=== PATIENT | male | born 1930 | race Caucasian/White ===

== ENCOUNTER 2016-08-04 21:22 | Inpatient (IN) | payer OTHER ==
[2016-08-04] MEDS ORDERED: ACETAMINOPHEN 325 MG PO ONE (21:31)
[2016-08-04] MEDS ORDERED: ACETAMINOPHEN 325 MG ONE (21:32)
[2016-08-04 21:37] LABS: BASOPHILS % (AUTO) 1 % (0-3); EOSINOPHILS % (AUTO) 0 % (0-9); HEMATOCRIT 43 % (39-53); MEAN CORPUSCULAR HGB CONC 34.4 gm/dl (32.0-36.0); MEAN CORPUSCULAR VOLUME 93 fL (80-100); MONOCYTES % (AUTO) 13.9 % (0-12); NEUTROPHILS % (AUTO) 70.7 % (37-80)
[2016-08-04 21:50] LABS: CALCIUM 8.9 mg/dl (8.5-10.1); POTASSIUM 4.3 mMol/L (3.5-5.1)
[2016-08-04] MEDS ORDERED: OSELTAMIVIR PHOSPHATE 75 MG CAP PO ONE ×2 (22:14→22:53)
[2016-08-04] MEDS ORDERED: SODIUM CHLORIDE 0.9% 1000ML 1,000 ML IV SCH (22:45)
[2016-08-04] MEDS ORDERED: ASPIRIN 325 MG TAB PO SCH (23:15)
[2016-08-04] MEDS: SODIUM CHLORIDE 0.9% FLUSH 10 ML SOL IV PRN (23:15)
[2016-08-04] MEDS ORDERED: ASPIRIN 325 MG TAB ONE (23:16)
[2016-08-04] MEDS ORDERED: BISACODYL 5 MG TAB ECT PO PRN (23:27)
[2016-08-04] MEDS: SODIUM CHLORIDE 0.9% 1000ML 1,000 ML IV SCH (23:27)
[2016-08-05 08:19] LABS: APPEARANCE,URINE Clear; BILIRUBIN,URINE NEGATIVE (NEGATIVE); COLOR,URINE Yellow; GLUCOSE, URINE (UA) NEGATIVE (NEGATIVE); KETONES,URINE TRACE (NEGATIVE); LEUKOCYTE ESTERASE ,URINE NEGATIVE (NEGATIVE); NITRATE,URINE NEGATIVE (NEGATIVE); OCCULT BLOOD,URINE 2+ (NEG-TRACE); PH,URINE 5.5; UROBILINOGEN,URINE 0.2 (0.2-1.0 EU)
[2016-08-05 08:20] LABS: WBC,URINE 0-2 (0-5AV/HPF)
[2016-08-05] MEDS ORDERED: ASPIRIN EC 81 MG PO SCH (09:00)
[2016-08-05] MEDS: OSELTAMIVIR PHOSPHATE 75 MG CAP PO SCH ×2 (10:00→20:31)
[2016-08-05] MEDS: ENOXAPARIN 40 MG SOL SC SCH (10:01)
[2016-08-05] MEDS: SODIUM CHLORIDE 0.9% 1000ML 1,000 ML IV SCH (13:21)
[2016-08-05] MEDS: SENNOSIDES A AND B 8.6 MG TAB PO SCH (20:30)
[2016-08-06] MEDS: SODIUM CHLORIDE 0.9% 1000ML 1,000 ML IV SCH ×2 (01:44→16:45)
[2016-08-06 07:05] LABS: CALCIUM 8.5 mg/dl (8.5-10.1); POTASSIUM 3.9 mMol/L (3.5-5.1)
[2016-08-06 07:27] LABS: BASOPHILS % (AUTO) 1 % (0-3); EOSINOPHILS % (AUTO) 1 % (0-9); HEMATOCRIT 40 % (39-53); MEAN CORPUSCULAR HGB CONC 35.6 gm/dl (32.0-36.0); MEAN CORPUSCULAR VOLUME 92 fL (80-100); MONOCYTES % (AUTO) 12.2 % (0-12)
[2016-08-06] MEDS ORDERED: MAGNESIUM HYDROXIDE 30 ML SUS PO PRN (08:04)
[2016-08-06] MEDS: ENOXAPARIN 40 MG SOL SC SCH (08:46)
[2016-08-06] MEDS: OSELTAMIVIR PHOSPHATE 75 MG CAP PO SCH ×2 (08:46→21:01)
[2016-08-06] MEDS: CLOPIDOGREL 75 MG TAB PO SCH (08:46)
[2016-08-06] MEDS ORDERED: LORAZEPAM 2 MG/ML SOL IV ONE ×2 (10:46→11:20)
[2016-08-06] MEDS: SODIUM CHLORIDE 0.9% FLUSH 10 ML SOL IV PRN (11:03)
[2016-08-06] MEDS: SENNOSIDES A AND B 8.6 MG TAB PO SCH (21:01)
[2016-08-07] MEDS: SODIUM CHLORIDE 0.9% 1000ML 1,000 ML IV SCH ×2 (06:19→19:42)
[2016-08-07 07:28] LABS: BASOPHILS % (AUTO) 1 % (0-3); EOSINOPHILS % (AUTO) 1 % (0-9); HEMATOCRIT 38 % (39-53); MEAN CORPUSCULAR HGB CONC 35.7 gm/dl (32.0-36.0); MEAN CORPUSCULAR VOLUME 93 fL (80-100); MONOCYTES % (AUTO) 9.3 % (0-12); NEUTROPHILS % (AUTO) 75.5 % (37-80)
[2016-08-07 07:37] LABS: ALBUMIN 2.4 gm/dl (3.4-5.0); CALCIUM 8.5 mg/dl (8.5-10.1); LDL CHOLESTEROL,CALCULATED 144.2 mg/dl (50-130)
[2016-08-07] MEDS: CLOPIDOGREL 75 MG TAB PO SCH (09:00)
[2016-08-07] MEDS: ENOXAPARIN 40 MG SOL SC SCH (09:00)
[2016-08-07] MEDS: OSELTAMIVIR PHOSPHATE 75 MG CAP PO SCH ×2 (09:00→21:59)
[2016-08-07] MEDS ORDERED: ACETAMINOPHEN 325 MG PO PRN (12:13)
[2016-08-07] MEDS ORDERED: ENOXAPARIN 100 MG SOL SC ONE (14:11)
[2016-08-07] MEDS: WARFARIN SODIUM 5 MG TAB PO SCH (18:17)
[2016-08-07] MEDS: ATORVASTATIN 10 MG TAB PO SCH (21:59)
[2016-08-07] MEDS: SENNOSIDES A AND B 8.6 MG TAB PO SCH (21:59)
[2016-08-08] MEDS: ENOXAPARIN 100 MG SOL SC SCH ×2 (04:50→17:37)
[2016-08-08 08:43] LABS: BASOPHILS % (AUTO) 1 % (0-3); EOSINOPHILS % (AUTO) 3 % (0-9); HEMATOCRIT 42 % (39-53); MEAN CORPUSCULAR HGB CONC 35.3 gm/dl (32.0-36.0); MEAN CORPUSCULAR VOLUME 93 fL (80-100); MONOCYTES % (AUTO) 8.1 % (0-12); NEUTROPHILS % (AUTO) 73.3 % (37-80)
[2016-08-08 08:47] LABS: CALCIUM 9.1 mg/dl (8.5-10.1); POTASSIUM 4.1 mMol/L (3.5-5.1)
[2016-08-08] MEDS: OSELTAMIVIR PHOSPHATE 75 MG CAP PO SCH ×2 (09:10→20:24)
[2016-08-08] MEDS: CLOPIDOGREL 75 MG TAB PO SCH (09:10)
[2016-08-08] MEDS: WARFARIN SODIUM 5 MG TAB PO SCH (17:37)
[2016-08-08] MEDS: ATORVASTATIN 10 MG TAB PO SCH (20:24)
[2016-08-08] MEDS: SENNOSIDES A AND B 8.6 MG TAB PO SCH (20:25)
[2016-08-09] MEDS: ENOXAPARIN 100 MG SOL SC SCH (05:55)
[2016-08-09 07:12] LABS: CALCIUM 8.7 mg/dl (8.5-10.1)
[2016-08-09 07:15] LABS: BASOPHILS % (AUTO) 1 % (0-3); EOSINOPHILS % (AUTO) 3 % (0-9); HEMATOCRIT 38 % (39-53); MEAN CORPUSCULAR HGB CONC 34.4 gm/dl (32.0-36.0); MEAN CORPUSCULAR VOLUME 93 fL (80-100); MONOCYTES % (AUTO) 9.4 % (0-12); NEUTROPHILS % (AUTO) 75.1 % (37-80)
[2016-08-09 07:57] VITALS: BP 132/82; TEMP 97.9
[2016-08-09 08:52] VITALS: PULSE 80; RESP 24; O2SAT 91
[2016-08-09] MEDS: CLOPIDOGREL 75 MG TAB PO SCH (08:55)
[2016-08-09] MEDS: OSELTAMIVIR PHOSPHATE 75 MG CAP PO SCH (08:55)
== END 2016-08-09 14:20 | disposition home or self-care (01) | DRG 65 ==
LOC: ED 21:22 → ACUTE CARE 23:18
PROVIDERS: ADMIT Family Medicine; ATTEND Family Medicine
PROC: F01ZDZZ Gait and/or Balance Assessment (ICD-10-PCS; principal; 2016-08-04)
PROC: F01 Physical Rehabilitation and Diagnostic Audiology, Rehabilitation, Motor and/or Nerve Function Assessment (ICD-10-PCS; 2016-08-04)
PROC: F01ZCZZ Transfer Assessment (ICD-10-PCS; 2016-08-04)
PROC: F02Z1ZZ Dressing Assessment (ICD-10-PCS; 2016-08-04)
PROC: F02Z0ZZ Bathing/Showering Assessment (ICD-10-PCS; 2016-08-04)
PROC: F02Z3ZZ Grooming/Personal Hygiene Assessment (ICD-10-PCS; 2016-08-04)
PROC: F00ZHZZ Bedside Swallowing and Oral Function Assessment (ICD-10-PCS; 2016-08-06)
DX: I63.9 Cerebral infarction, unspecified (principal); G81.91 Hemiplegia, unspecified affecting right dominant side; R29.702 NIHSS score 2; J11.1 Influenza due to unidentified influenza virus with other respiratory manifestations; Z86.69 Personal history of other diseases of the nervous system and sense organs; R47.02 Dysphasia; I25.10 Atherosclerotic heart disease of native coronary artery without angina pectoris; I51.3 Intracardiac thrombosis, not elsewhere classified; R13.10 Dysphagia, unspecified
CPT/HCPCS: 36415; 70450; 70544; 71010; 80048; 80053; 80061; 81001; 85025; 85610; 87804; 93005; 93012; 93306; 94150; 94664; 94760; 99222; 99285; J1650; J2060; Q9957

== ENCOUNTER 2016-08-13 10:25 | Emergency (ER) | payer OTHER ==
[2016-08-13 11:07] VITALS: TEMP 99.5
[2016-08-13 11:23] LABS: BASOPHILS % (AUTO) 0 % (0-3); EOSINOPHILS % (AUTO) 0 % (0-9); HEMATOCRIT 37 % (39-53); MEAN CORPUSCULAR HGB CONC 36.1 gm/dl (32.0-36.0); MEAN CORPUSCULAR VOLUME 92 fL (80-100); MONOCYTES % (AUTO) 13.4 % (0-12); NEUTROPHILS % (AUTO) 78.2 % (37-80)
[2016-08-13] MEDS ORDERED: ACETAMINOPHEN 325 MG PO ONE (11:32)
[2016-08-13 11:33] LABS: CALCIUM 9.2 mg/dl (8.5-10.1); POTASSIUM 4.3 mMol/L (3.5-5.1)
[2016-08-13] MEDS ORDERED: ACETAMINOPHEN 325 MG ONE (11:34)
[2016-08-13 11:56] VITALS: BP 133/89; PULSE 84; RESP 22; O2SAT 94
== END 2016-08-13 13:10 | disposition home or self-care (01) | DRG 556 ==
LOC: ED 10:25
DX: M79.81 Nontraumatic hematoma of soft tissue (principal); Z79.01 Long term (current) use of anticoagulants
CPT/HCPCS: 36415; 71250; 80048; 85025; 85610; 85730; 99283; 99284

== ENCOUNTER 2017-01-28 14:38 | Emergency (ER) | payer OTHER ==
[2017-01-28 14:51] VITALS: TEMP 97.5
[2017-01-28 15:24] LABS: BASOPHILS % (AUTO) 1 % (0-3); EOSINOPHILS % (AUTO) 10 % (0-9); HEMATOCRIT 41 % (39-53); MEAN CORPUSCULAR HGB CONC 34.8 gm/dl (32.0-36.0); MEAN CORPUSCULAR VOLUME 93 fL (80-100); MONOCYTES % (AUTO) 12.7 % (0-12); NEUTROPHILS % (AUTO) 56.6 % (37-80)
[2017-01-28 15:37] LABS: ALBUMIN 3.1 gm/dl (3.4-5.0); ALT 38 IU/L (14-63); CALCIUM 9.1 mg/dl (8.5-10.1); GLOM FILT RATE 96 mL/min (>60); POTASSIUM 4.6 mMol/L (3.5-5.1); SODIUM 140 mMol/L (136-145)
[2017-01-28] MEDS: FLEET ENEMA PR PRN (16:09)
[2017-01-28] MEDS: IBUPROFEN 600 MG TAB PO ONE (16:20)
[2017-01-28] MEDS ORDERED: IBUPROFEN 600 MG TAB ONE (16:20)
[2017-01-28 16:48] VITALS: BP 114/71; PULSE 61; RESP 18; O2SAT 98
== END 2017-01-28 16:40 | disposition home or self-care (01) | DRG 313 ==
LOC: ED 14:38
DX: R07.9 Chest pain, unspecified (principal); K59.00 Constipation, unspecified
CPT/HCPCS: 36415; 71010; 74020; 80053; 84484; 85025; 93005; 99284

== ENCOUNTER 2017-06-19 14:50 | Emergency (ER) | payer OTHER ==
[2017-06-19 15:03] VITALS: RESP 16; TEMP 98.4
[2017-06-19] MEDS ORDERED: MORPHINE SULFATE 10 MG/ML SOL ONE (15:04)
[2017-06-19 15:06] LABS: BASOPHILS % (AUTO) 1 % (0-3); EOSINOPHILS % (AUTO) 6 % (0-9); HEMATOCRIT 44 % (39-53); MEAN CORPUSCULAR HGB CONC 34.4 gm/dl (32.0-36.0); MEAN CORPUSCULAR VOLUME 92 fL (80-100); NEUTROPHILS % (AUTO) 63.3 % (37-80)
[2017-06-19] MEDS ORDERED: MORPHINE SULFATE 10 MG/ML SOL IV ONE (15:06)
[2017-06-19] MEDS ORDERED: SODIUM CHLORIDE 0.9% FLUSH 10 ML SOL IV PRN (15:09)
[2017-06-19 15:19] LABS: ALBUMIN 3.1 gm/dl (3.4-5.0); ALT 38 IU/L (14-63); GLOM FILT RATE 82 mL/min (>60); POTASSIUM 4.6 mMol/L (3.5-5.1); SODIUM 143 mMol/L (136-145)
[2017-06-19 16:08] VITALS: BP 131/78; PULSE 56; O2SAT 95
== END 2017-06-19 15:27 | disposition short-term general hospital (02) | DRG 312 ==
LOC: ED 14:50
DX: R55 Syncope and collapse (principal); I47.2 Ventricular tachycardia; R06.02 Shortness of breath; R10.9 Unspecified abdominal pain
CPT/HCPCS: 36415; 71045; 80053; 83880; 84484; 85025; 85610; 93005; 96374; 99291; J2270

== ENCOUNTER 2017-07-16 11:47 | Observation (INO) | payer OTHER ==
[2017-07-16 12:25] LABS: BASOPHILS % (AUTO) 1 % (0-3); EOSINOPHILS % (AUTO) 8 % (0-9); HEMATOCRIT 43 % (39-53); MEAN CORPUSCULAR HGB CONC 32.7 gm/dl (32.0-36.0); MEAN CORPUSCULAR VOLUME 97 fL (80-100); MONOCYTES % (AUTO) 9.9 % (0-12); NEUTROPHILS % (AUTO) 67.5 % (37-80)
[2017-07-16 12:38] LABS: CALCIUM 8.8 mg/dl (8.5-10.1); GLOM FILT RATE 81 mL/min (>60); SODIUM 141 mMol/L (136-145)
[2017-07-16 12:43] LABS: POTASSIUM 4.4 mMol/L (3.5-5.1)
[2017-07-16] MEDS ORDERED: ACETAMINOPHEN 500 MG 500 MG TAB PO PRN (17:38)
[2017-07-16] MEDS: WARFARIN SODIUM 2.5 MG TAB PO SCH (18:12)
[2017-07-16] MEDS: SENNOSIDES A AND B 8.6 MG TAB PO SCH (20:13)
[2017-07-16] MEDS: ATORVASTATIN 10 MG TAB PO SCH (20:13)
[2017-07-16] MEDS: FLUDROCORTISONE ACETATE 0.1 MG TAB PO SCH (20:13)
[2017-07-16] MEDS: PANTOPRAZOLE SODIUM 40 MG ECT PO SCH (23:22)
[2017-07-17] MEDS ORDERED: LORAZEPAM 0.5 MG TAB PO ONE (05:55)
[2017-07-17 06:30] LABS: CALCIUM 9.1 mg/dl (8.5-10.1); GLOM FILT RATE 97 mL/min (>60); POTASSIUM 4.2 mMol/L (3.5-5.1); SODIUM 141 mMol/L (136-145)
[2017-07-17] MEDS ORDERED: PANTOPRAZOLE SODIUM 40 MG ECT PO SCH (07:00)
[2017-07-17] MEDS: FLUDROCORTISONE ACETATE 0.1 MG TAB PO SCH (10:19)
[2017-07-17] MEDS: PANTOPRAZOLE SODIUM 40 MG ECT PO SCH (10:19)
[2017-07-17] MEDS: POLYETHYLENE GLYCOL 17 GM/1 TBS PDS PO SCH (10:19)
[2017-07-17 15:48] VITALS: RESP 18
[2017-07-17] MEDS: SODIUM CHLORIDE 0.9% FLUSH 10 ML SOL IV SCH (18:16)
[2017-07-17] MEDS: WARFARIN SODIUM 2.5 MG TAB PO SCH (18:16)
[2017-07-17] MEDS ORDERED: TEMAZEPAM 7.5 MG CAP PO PRN (20:14)
[2017-07-17] MEDS: ATORVASTATIN 10 MG TAB PO SCH (20:54)
[2017-07-17] MEDS: SENNOSIDES A AND B 8.6 MG TAB PO SCH (20:54)
[2017-07-18] MEDS: SODIUM CHLORIDE 0.9% FLUSH 10 ML SOL IV SCH ×2 (01:59→09:44)
[2017-07-18] MEDS ORDERED: FLUDROCORTISONE ACETATE 0.1 MG TAB PO SCH (09:00)
[2017-07-18] MEDS: PANTOPRAZOLE SODIUM 40 MG ECT PO SCH (09:43)
[2017-07-18] MEDS: POLYETHYLENE GLYCOL 17 GM/1 TBS PDS PO SCH (09:44)
[2017-07-18 09:52] VITALS: BP 120/78; PULSE 80; TEMP 97.4; O2SAT 97
[2017-07-18] MEDS ORDERED: WARFARIN SODIUM 5 MG TAB PO SCH (17:38)
== END 2017-07-18 12:55 | disposition home or self-care (01) | DRG 312 ==
LOC: ED 11:47 → ACUTE CARE 13:40 → UNDOADMOB 13:41 → ACUTE CARE 13:41
PROVIDERS: ADMIT Family Medicine; ATTEND Family Medicine
PROC: F01 Physical Rehabilitation and Diagnostic Audiology, Rehabilitation, Motor and/or Nerve Function Assessment (ICD-10-PCS; principal; 2017-07-18)
PROC: F01ZBZZ Bed Mobility Assessment (ICD-10-PCS; 2017-07-18)
PROC: F01ZDZZ Gait and/or Balance Assessment (ICD-10-PCS; 2017-07-18)
PROC: F01 Physical Rehabilitation and Diagnostic Audiology, Rehabilitation, Motor and/or Nerve Function Assessment (ICD-10-PCS; 2017-07-18)
PROC: F02Z0ZZ Bathing/Showering Assessment (ICD-10-PCS; 2017-07-18)
PROC: F02Z2ZZ Feeding/Eating Assessment (ICD-10-PCS; 2017-07-18)
DX: R55 Syncope and collapse (principal); F03.90 Unspecified dementia, unspecified severity, without behavioral disturbance, psychotic disturbance, mood disturbance, and anxiety; R42 Dizziness and giddiness; I25.10 Atherosclerotic heart disease of native coronary artery without angina pectoris; K59.00 Constipation, unspecified; R51 Headache
CPT/HCPCS: 36415; 71045; 80048; 84484; 85025; 85610; 93005; 93012; 99283; 99284; A9270-GY

== ENCOUNTER 2017-12-14 11:37 | Emergency (ER) | payer OTHER ==
[2017-12-14 12:36] LABS: BASOPHILS % (AUTO) 0 % (0-3); EOSINOPHILS % (AUTO) 4 % (0-9); HEMATOCRIT 43 % (39-53); HEMOGLOBIN 14.3 gm/dl (13.5-17.7); MEAN CORPUSCULAR HGB CONC 33.1 gm/dl (32.0-36.0); MEAN CORPUSCULAR VOLUME 94 fL (80-100); NEUTROPHILS % (AUTO) 81.3 % (37-80)
[2017-12-14] MEDS ORDERED: BISACODYL 10 MG SUP PR PRN (12:44)
[2017-12-14] MEDS ORDERED: MINERAL OIL ENEMA 1 EA NMA PR ONE (12:44)
[2017-12-14] MEDS ORDERED: BISACODYL 10 MG SUP PR ONE (13:07)
[2017-12-14 13:35] LABS: APPEARANCE,URINE Clear; BILIRUBIN,URINE NEGATIVE (NEGATIVE); COLOR,URINE Dark yellow; GLUCOSE, URINE (UA) NEGATIVE (NEGATIVE); KETONES,URINE TRACE (NEGATIVE); LEUKOCYTE ESTERASE ,URINE 1+ (NEGATIVE); NITRATE,URINE NEGATIVE (NEGATIVE); OCCULT BLOOD,URINE NEGATIVE (NEG-TRACE); UROBILINOGEN,URINE 0.2 (0.2-1.0 EU)
[2017-12-14] MEDS ORDERED: ACETAMINOPHEN 500 MG 500 MG TAB PO ONE (13:49)
[2017-12-14 13:55] LABS: BACTERIA 2+ (< 1+); CRYSTALS NEGATIVE (0-3 AVE/HPF); EPITHELIAL CELLS 0-3 (SQUAMOUS); RBC,URINE 0-1 (0-3AV/HPF)
[2017-12-14] MEDS ORDERED: CIPROFLOXACIN HCL 500 MG TAB PO SCH (14:00)
[2017-12-14 14:02] LABS: CALCIUM 9.1 mg/dl (8.5-10.1); CREATININE 0.81 mg/dl (0.80-1.30); POTASSIUM 3.9 mMol/L (3.5-5.1)
[2017-12-14] MEDS ORDERED: ACETAMINOPHEN 500 MG 500 MG TAB ONE (14:07)
[2017-12-14] MEDS ORDERED: CIPROFLOXACIN HCL 500 MG TAB PO ONE (14:10)
[2017-12-14 14:13] LABS: CARBON DIOXIDE 31.1 mEq/L (21-32)
[2017-12-14] MEDS ORDERED: SODIUM CHLORIDE 0.9% 1000ML 1,000 ML IV SCH (17:15)
[2017-12-14 17:35] LABS: AMYLASE 33 IU/L (25-115); TROP I < 0.017 ng/ml (0.000-0.056)
[2017-12-14 18:03] VITALS: TEMP 97.8
[2017-12-14 20:48] LABS: ALBUMIN 2.8 gm/dl (3.4-5.0); BILIRUBIN,DIRECT 0.2 mg/dl (0.0-0.2); BILIRUBIN,TOTAL 0.7 mg/dl (0.2-1.0); TOTAL PROTEIN 6.1 gm/dl (6.4-8.2)
[2017-12-14 21:18] VITALS: RESP 16
[2017-12-14 21:19] VITALS: BP 153/97; PULSE 69; O2SAT 92
== END 2017-12-14 21:50 | disposition short-term general hospital (02) | DRG 815 ==
LOC: ED 11:37
DX: D73.5 Infarction of spleen (principal); N39.0 Urinary tract infection, site not specified; F03.90 Unspecified dementia, unspecified severity, without behavioral disturbance, psychotic disturbance, mood disturbance, and anxiety
CPT/HCPCS: 36415; 74019; 74176; 74177; 80048; 80076; 81001; 82150; 83880; 84484; 85025; 87040; 87088; 93005; 96365; 96366; 99284; 99285; Q9967; A9270-GY

== ENCOUNTER 2018-03-11 11:49 | Emergency (ER) | payer OTHER ==
[2018-03-11] MEDS ORDERED: SODIUM CHLORIDE 0.9% 1000ML 1,000 ML IV ONE (12:20)
[2018-03-11 12:36] LABS: BASOPHILS % (AUTO) 1 % (0-3); EOSINOPHILS % (AUTO) 3 % (0-9); HEMATOCRIT 46 % (39-53); HEMOGLOBIN 15.3 gm/dl (13.5-17.7); LYMPHOCYTES % (AUTO) 11.1 % (10-50); MEAN CORPUSCULAR HEMOGLOBIN 30.9 pg (27.0-32.0); MEAN CORPUSCULAR HGB CONC 32.9 gm/dl (32.0-36.0); MEAN CORPUSCULAR VOLUME 94 fL (80-100); MONOCYTES % (AUTO) 9.3 % (0-12); NEUTROPHILS % (AUTO) 76.3 % (37-80)
[2018-03-11 12:42] VITALS: RESP 14; TEMP 98.6
[2018-03-11 12:42] LABS: CALCIUM 8.9 mg/dl (8.5-10.1); CARBON DIOXIDE 31.4 mEq/L (21-32); CREATININE 0.83 mg/dl (0.80-1.30); POTASSIUM 3.6 mMol/L (3.5-5.1)
[2018-03-11 12:43] LABS: INR 2.85 (0.86-1.12)
[2018-03-11] MEDS ORDERED: SODIUM CHLORIDE 0.9% 500 ML 500 ML IV ONE (15:45)
[2018-03-11 19:37] VITALS: BP 145/90; PULSE 87; O2SAT 97
== END 2018-03-11 18:00 | disposition home or self-care (01) | DRG 641 ==
LOC: ED 11:49
DX: E86.0 Dehydration (principal); Z79.01 Long term (current) use of anticoagulants
CPT/HCPCS: 70450; 80048; 85025; 85610; 96365; 96366; 99283; 99285

== ENCOUNTER 2018-08-07 14:49 | Emergency (ER) | payer BC, OTHER ==
[2018-08-07 14:49] VITALS: O2SAT 97
[2018-08-07 21:52] VITALS: BP 149/70; PULSE 68; RESP 18; TEMP 97.9
== END 2018-08-07 16:45 | disposition home or self-care (01) | DRG 301 ==
LOC: ED 14:49
DX: I71.4 Abdominal aortic aneurysm, without rupture (principal); Z79.01 Long term (current) use of anticoagulants
CPT/HCPCS: 99282